=== PATIENT | male | born 2000 | race Caucasian/White ===

== ENCOUNTER 2025-04-03 16:39 | Emergency (ER) | payer OTHER ==
[~2025-04-03] VITALS: Ht 180.3 cm; Wt 63.0 kg
[2025-04-03] MEDS ORDERED: BUSPIRONE HCL10 MG PO (17:01)
[2025-04-03] MEDS ORDERED: MIRTAZAPINE15 MG PO (17:01)
[2025-04-03] MEDS ORDERED: OMEPRAZOLE20 M1 PO (17:01)
[2025-04-03 19:03] VITALS: BP 147/102
== END 2025-04-03 19:25 | disposition home or self-care (01) ==
LOC: ED 16:39
DX: S46.911A Strain of unspecified muscle, fascia and tendon at shoulder and upper arm level, right arm, initial encounter (principal); S00.03XA Contusion of scalp, initial encounter; Z79.899 Other long term (current) drug therapy; Y04.8XXA Assault by other bodily force, initial encounter
CPT/HCPCS: 73030; 99284